=== PATIENT | male | born 1965 | race Caucasian/White ===

== ENCOUNTER 2021-05-25 15:28 | Outpatient (REF) | payer OTHER, SELFPAY | END 2021-05-25 15:29 | disposition home or self-care (01) | LOC: HO.LAB 15:28 | PROVIDERS: Visit Provider Internal Medicine | DX: Z20.822 Contact with and (suspected) exposure to COVID-19 (principal) | CPT/HCPCS: C9803; U0003; U0005 ==

== ENCOUNTER 2021-08-13 12:13 | Emergency (ER) | payer OTHER, SELFPAY ==
--- NOTE | ~2021-08-13 | CT_ITS ---
EXAMINATION: CT ABDOMEN AND PELVIS WITHOUT CONTRAST CLINICAL INFORMATION: Left leg pain COMPARISON: Previous CT of the abdomen and pelvis December 2016 TECHNIQUE: Multidetector volumetric imaging was performed from the superior aspect of the liver through the pubic symphysis. Sagittal and coronal reformatted images were obtained on the technologist's workstation. This CT examination was performed using dose optimization techniques as appropriate, variously including the following: *Automated exposure control *Adjustment of mA and/or kV according to patient size (this includes techniques or standardized protocols for targeted exams where dose is matched to indication/reason for exam; i.e. extremities or head) *Use of iterative reconstruction technique DLP: 838 mGy-cm FINDINGS: LUNG BASES: The visualized lung bases are unremarkable. LIVER, GALLBLADDER, AND BILIARY TREE: The liver is normal in size and shape. The liver is low in attenuation suggestive of fatty infiltration. No focal hepatic lesion or biliary ductal dilatation is present. The gallbladder is unremarkable with no evidence of radiopaque gallstones, gallbladder wall thickening, or obvious pericholecystic inflammatory changes. PANCREAS: Unremarkable. SPLEEN: Unremarkable. ADRENAL GLANDS: Unremarkable. KIDNEYS AND URETERS: There are 2 2 x 4 mm stones in the upper and lower pole of the left kidney. There is mild left hydronephrosis from a 3 x 5 mm left UPJ stone. There is stranding of the left perinephric fat. This probably represents backflow of urine due to obstruction. Differential would include infection. Left ureter is normal in caliber. No left ureteral stone is seen. There is a tiny 1 mm stone in the upper pole of the right kidney. BLADDER: Unremarkable. GASTROINTESTINAL TRACT: There is mild diverticulosis of the colon. Large bowel is otherwise unremarkable. The appendix is unremarkable. The stomach is unremarkable. ABDOMINAL WALL: No significant hernia is appreciated. LYMPH NODES: Normal. VASCULAR: Unremarkable. PELVIC VISCERA: Unremarkable. OSSEOUS STRUCTURES: There are degenerative changes of the spine. CT/CT abdomen pelvis wo con IMPRESSION: Mild left hydronephrosis from a 3 x 5 mm left UPJ stone. Bilateral renal stones, left greater than right. Diverticulosis. Fleischner guidelines were followed.
[2021-08-13 12:19] VITALS: BP 151/99; PULSE 75; RESP 20; TEMP 37; O2SAT 100; BMI 35.4
--- NOTE | 2021-08-13 14:25 | ED_ITS ---
HPI - Abdominal Pain General Chief Complaint: Abdominal Pain Stated Complaint: Abd Pain Time Seen by Provider: 08/13/21 14:17 Source: patient Mode of arrival: ambulatory Limitations: no limitations History of Present Illness HPI narrative: 55-year-old male with history of renal colic, high cholesterol, hypertension, NIDDM here with complaints of left-sided flank pain noticed this morning which radiates the left side of the abdomen with nausea. No vomiting, diarrhea, urinary symptoms, fevers or chills. He tells me he called his urologist but they were unable to see him and so he came here today. MD elicited complaint: abdominal pain and flank pain Related Data Previous Rx's Medication Instructions Recorded ibuprofen 600 mg tablet 600 mg PO Q8H PRN #20 tab 08/13/21 oxycodone 5 mg tablet 5 mg PO Q8H PRN #10 tab 08/13/21 tamsulosin 0.4 mg capsule (Flomax) 0.4 mg PO BEDTIME #14 cap 08/13/21 Allergies Allergy/AdvReac Type Severity Reaction Status Date / Time No Known Allergies Allergy Unverified 04/16/20 16:36 [No Known Allergies*] Review of Systems Review of Systems Yes all other systems are reviewed and are negative Constitutional: Reports no additional constitutional complaints, Denies body ache(s), Denies chills, Denies fever(s), Denies headache(s) and Denies weakness Eyes: Reports no additional eye complaints and Denies change in vision Reports system reviewed and no additional complaints, except as documented, Denies dizziness, Denies headache(s), Denies nasal congestion, Denies nasal discharge and Denies neck pain Cardiovascular: Reports no additional cardiovascular complaints, Denies chest pain, Denies leg edema and Denies dyspnea Respiratory: Reports no additional respiratory complaints, Denies cough and Denies dyspnea Gastrointestinal: Reports no additional gastrointestinal complaints, Reports abdominal pain, Denies diarrhea, Denies nausea and Denies vomiting Genitourinary: Denies urinary incontinence Musculoskeletal: Reports no additional musculoskeletal complaints, Reports back pain, Denies arthralgias, Denies joint swelling, Denies neck pain, Denies numbness and Denies tingling Skin/Breast: Reports system reviewed and no additional complaints, except as docu and Denies rash Reports system reviewed and no additional complaints, except as documented, Denies Abnormal speech present, Denies dizziness, Denies headache(s), Denies numbness, Denies tingling and Denies weakness Physical Exam Vital Signs: Vital Signs: Last Vital Signs Temp 98.1 F 08/13/21 14:52 Pulse 76 08/13/21 14:52 Resp 16 08/13/21 14:52 BP 152/97 H 08/13/21 14:52 Pulse Ox 99 08/13/21 14:52 BMI result Body Mass Index 35.4 Const: General: cooperative, healthy appearing, comfortable and no acute distress Orientation/consciousness: patient oriented x3 Limitations: no limitations HENMT: Head: Yes normal to inspection Ears: hearing grossly normal bilaterally General nose exam: Normal external nose present Face and sinus: Yes normal facial exam Mouth: Normal oral and palatal mucosa present Throat: Yes posterior oropharynx normal Eyes: General: appearance normal, both eyes and all related structures Pupils: Equal, round and reactive pupils present Neck: Neck: Yes normal visual inspection Chest: Chest palpation & inspection: normal inspection of the chest Resp: Effort & Inspection: normal respiratory effort Auscultation: clear to auscultation bilaterally Cardio: Rate: regular rate Rhythm: regular rhythm Peripheral pulses: Peripheral pulses 2+ throughout GI: Inspection: Yes normal to inspection Palpation (GI): Soft to palpation and Tenderness to palpation present (GI) (Left abdomen-no rebound or guarding) Auscultation: normal bowel sounds : General: Yes CVA tenderness (left ) Back/Spine/Pelvis: Back: CVA tenderness (left ) Thoracic/Lumbar Spine: thoracic and lumbar spine normal to inspection Skin: General skin exam: no rashes or lesions noted Neuro: General: patient oriented x3, no focal motor deficits and normal sensation to monofilament Cranial nerves: Yes Equal, round and reactive pupils present Cognition (Neuro): normal cognition Speech: No Abnormal speech present Gait exam (Neuro): Normal gait present Motor exam (neuro): 5/5 motor strength present throughout Extrem: General: Yes normal to inspection Course Course Course Narrative: 55-year-old male with a history of renal colic here with reports of left-sided flank pain with radiation to the left abdomen since waking. Will check labs, UA, CT A/P. Provide analgesia 1630- Mild left hydronephrosis from a 3 x 5 mm left UPJ stone. Bilateral renal stones, left greater than right. Diverticulosis. D/w Dr Muñoz. Recommended starting flomax, NSAID, oxycodone for home with follow-up Monday. Reviewed worrisome signs and symptoms of when to return to the emergency depar tment. Comfortable discharge home. MDM - Abdominal Pain MDM Narrative Medical decision making narrative: renal colic Medical Records Attestation: I reviewed the patient's medical records. Lab Data Attestation: I reviewed the patient's lab results. Result diagrams: 08/13/21 15:04 08/13/21 15:04 Labs: Lab Results 08/13/21 08/13/21 08/13/21 Range/Units 14:48 15:04 15:04 WBC 13.2 H (4.8-10.8) X10*3/uL RBC 5.76 (4.60-5.80) X10*6/uL Hgb 16.2 (14.0-18.0) g/dl Hct 47.3 (42.0-52.0) % MCV 82.1 (80.0-98.0) fL MCH 28.1 (27.0-33.0) pg MCHC 34.2 (31.0-36.0) g/dl RDW 11.6 (11.0-16.0) % Plt Count 249 (160-400) X10*3/uL MPV 9.9 (9.4-12.4) fL Immature Gran % (Auto) 0.5 H (0.0-0.4) % Neut % (Auto) 86.9 H (45-73) % Lymph % (Auto) 7.7 L (20-40) % [place] % (Auto) 4.6 (2-11) % Eos % (Auto) 0.1 (0-4) % Baso % (Auto) 0.2 (0-2) % Lymph # (Auto) 1.0 L (1.2-4.9) X10*3/uL [place] # (Auto) 0.6 (0.1-1.2) X10*3/uL Eos # (Auto) 0.0 (0.0-0.4) X10*3/uL Baso # (Auto) 0.0 (0.0-0.2) X10*3/uL Abs Immat Gran (auto) 0.07 H (0.00-0.03) X10*3/uL Absolute Neuts (auto) 11.5 H (2.0-8.3) x10*3/uL Absolute Nucleated RBC 0.000 (0.0-0.012) X10*3/uL Nucleated RBC % (auto) 0.0 (0.0-0.2) /100WBC Sodium 138 (135-145) mmol/L Potassium 4.4 (3.3-5.1) mmol/L Chloride 104 (96-108) mmol/L Carbon Dioxide 20 L (22-29) mmol/L Anion Gap 18 (12-20) BUN 18 H (9-16) mg/dL Creatinine 1.21 (0.5-1.4) mg/dL Estim Creat Clear Calc 79.3 Estimated GFR > 60 Random Glucose 240 H (60-115) mg/dL Calcium 9.9 (8.4-10.2) mg/dL Total Bilirubin 0.5 (0.0-1.0) mg/dL Direct Bilirubin 0.2 (0.0-0.5) mg/dL AST 64 H (5-37) U/L ALT 91 H (0-40) U/L Alkaline Phosphatase 67 (39-117) U/L Total Protein 7.6 (6.5-8.0) g/dL Albumin 4.3 (3.5-5.0) g/dL Urine Color YELLOW Urine Appearance CLEAR Urine pH 5.5 (5.0-8.0) Ur Specific [place] >= 1.030 H (1.005-1.025) Urine Protein TRACE (NEG-TRACE) MG/DL Urine Glucose (UA) 500 H (NEG) MG/DL Urine Ketones NEG (NEG) MG/DL Urine Blood 3+ H (NEG) Urine Nitrite NEG (NEG) Ur Leukocyte Esterase NEG (NEG) Urine RBC 5-9 H (0) /HPF Urine WBC 0 (0-4) /HPF Ur Squamous Epith Cells TRACE /LPF Urine Bacteria NONE /LPF Urine Mucus TRACE /LPF Imaging Data CT scan - abdomen: Attestation: I personally reviewed and interpreted this imaging study as follows: Radiologist's impression: FINDINGS: LUNG BASES: The visualized lung bases are unremarkable.? LIVER, GALLBLADDER, AND BILIARY TREE: The liver is normal in size and shape. The liver is low in attenuation suggestive of fatty infiltration. No focal hepatic lesion or biliary ductal dilatation is present. The gallbladder is unremarkable with no evidence of radiopaque gallstones, gallbladder wall thickening, or obvious pericholecystic inflammatory changes.? PANCREAS: Unremarkable.? SPLEEN: Unremarkable.? ADRENAL GLANDS: Unremarkable.? KIDNEYS AND URETERS: There are 2 2 x 4 mm stones in the upper and lower pole of the left kidney. There is mild left hydronephrosis from a 3 x 5 mm left UPJ stone. There is stranding of the left perinephric fat. This probably represents backflow of urine due to obstruction. Differential would include infection. Left ureter is normal in caliber. No left ureteral stone is seen. There is a tiny 1 mm stone in the upper pole of the right kidney.? BLADDER: Unremarkable.? GASTROINTESTINAL TRACT: There is mild diverticulosis of the colon. Large bowel is otherwise unremarkable. The appendix is unremarkable. The stomach is unremarkable.? ABDOMINAL WALL: No significant hernia is appreciated.? LYMPH NODES: Normal. VASCULAR: Unremarkable. PELVIC VISCERA: Unremarkable.? OSSEOUS STRUCTURES: There are degenerative changes of the spine.? CT/CT abdomen pelvis wo con IMPRESSION: Mild left hydronephrosis from a 3 x 5 mm left UPJ stone. Bilateral renal stones, left greater than right. Diverticulosis. ? Fleischner guidelines were followed. Discharge Plan Discharge Clinical Impression: Calculus of kidney Patient Disposition: Home, Self-Care Instructions: Kidney Stones (ED) Additional Instructions: Increase fluids, rest Dr. Muñoz's nurse will call you Monday to make an appointment Return this week and for severe pain, vomiting or fever Prescriptions: New tamsulosin [Flomax] 0.4 mg capsule 0.4 mg PO BEDTIME Qty: 14 RF: 0 ibuprofen 600 mg tablet 600 mg PO Q8H PRN (Reason: pain) Qty: 20 RF: 0 oxycodone 5 mg tablet 5 mg PO Q8H PRN (Reason: pain) Qty: 10 RF: 0 Referrals: Oscar Muñoz MD [Physician] - 2 days Stand Alone Forms: Work/School Release [facility] Past Medical History Attestation statement: The following information was validated with the patient. Source: old records reviewed and nursing notes reviewed Medical History Diabetes H/O nephrolithotomy with removal of calculi High cholesterol HTN (hypertension) Kidney stone Surgical History H/O shoulder surgery Social History Social History Advance Directives: No Advance Directives Information Provided: Yes
[2021-08-13 14:52] VITALS: BP 152/97; PULSE 76; RESP 16; TEMP 36.7; O2SAT 99
[2021-08-13 14:54] LABS: Appearance Urine CLEAR; Color Urine YELLOW; Glucose Urine UA 500 MG/DL (NEG); Leukocyte Esterase Urine NEG (NEG); Nitrite Urine NEG (NEG); PH 5.5 (5.0-8.0); Specific Gravity - Urine >= 1.030 (1.005-1.025); UACC Culture Trigger NO; Urine Blood 3+ (NEG); Urine Ketones NEG (NEG); Urine Protein TRACE MG/DL (NEG-TRACE)
[2021-08-13 15:08] LABS: MANUAL DIFF FLAG NO
[2021-08-13] MEDS: ondansetron HCL 4 MG/2 ML VIAL IVPUSH (15:08)
[2021-08-13] MEDS: Morphine Sulfate 4 MG/ML CARTRIDGE IVPUSH (15:08)
[2021-08-13] MEDS: 0.9 % Sodium Chloride 1,000 ML 999 ML IV (15:09)
[2021-08-13] MEDS: Ketorolac Tromethamine 30 MG/ML VIAL IVPUSH (15:09)
[2021-08-13 15:11] LABS: Basophils Percent Auto 0.2 % (0-2); Eosinophils Percent Auto 0.1 % (0-4); Hematocrit 47.3 % (42.0-52.0); Hemoglobin 16.2 g/dl (14.0-18.0); Imm Gran Abs Auto 0.07 X10*3/uL (0.00-0.03); Imm Gran Pct Auto 0.5 % (0.0-0.4); Lymphocytes Percent Auto 7.7 % (20-40); Mean Corpuscular HGB Conc 34.2 g/dl (31.0-36.0); Mean Corpuscular Hemoglobin 28.1 pg (27.0-33.0); Mean Corpuscular Volume 82.1 fL (80.0-98.0); Mean Platelet Volume 9.9 fL (9.4-12.4); Monocytes Absolute Auto 0.6 X10*3/uL (0.1-1.2); Monocytes Percent Auto 4.6 % (2-11); Neutrophils Absolute Auto 11.5 x10*3/uL (2.0-8.3); Neutrophils Percent Auto 86.9 % (45-73); Platelet Count 249 X10*3/uL (160-400); Red Blood Count 5.76 X10*6/uL (4.60-5.80); Red Cell Distribution Width 11.6 % (11.0-16.0); White Blood Count 13.2 X10*3/uL (4.8-10.8)
[2021-08-13 15:15] LABS: WBC Urine 0 /HPF (0-4)
[2021-08-13 15:16] LABS: Mucus Urine TRACE /LPF; Squamous Epithelial Cell Urine TRACE /LPF
[2021-08-13 15:33] LABS: Alanine Aminotransferase 91 U/L (0-40); Albumin Level 4.3 g/dL (3.5-5.0); Alkaline Phosphatase 67 U/L (39-117); Anion Gap 18 (12-20); Aspartate Amino Transferase 64 U/L (5-37); Bilirubin Direct 0.2 mg/dL (0.0-0.5); Bilirubin Total 0.5 mg/dL (0.0-1.0); Blood Urea Nitrogen 18 mg/dL (9-16); Calcium 9.9 mg/dL (8.4-10.2); Carbon Dioxide 20 mmol/L (22-29); Chloride 104 mmol/L (96-108); Creatinine Clr Calc Pharmacy 79.3; Estimated Glomerular Filt Rate > 60; Glucose Random 240 mg/dL (60-115); Potassium 4.4 mmol/L (3.3-5.1); Sodium 138 mmol/L (135-145); Total Protein 7.6 g/dL (6.5-8.0)
== END 2021-08-13 17:18 | disposition home or self-care (01) ==
PROVIDERS: Emergency Provider Emergency Medicine; PCP Internal Medicine
DX: N20.0 Calculus of kidney (principal); R10.9 Unspecified abdominal pain; R11.0 Nausea; Z79.899 Other long term (current) drug therapy
CPT/HCPCS: 36415; 74176; 80053; 81001; 81003; 82248; 85025; 96361; 96374; 96375; 99284; J1885; J2270; J2405

== ENCOUNTER 2021-08-16 11:29 | Day surgery (SDC) | payer OTHER, SELFPAY ==
--- NOTE | ~2021-08-16 | FL_ITS ---
EXAMINATION: XR FLUOROSCOPY WITH IMAGES CLINICAL INFORMATION: Urinary tract calculi, mild left hydronephrosis with left UPJ calculus. COMPARISON: CT abdomen and pelvis without contrast 08/13/2021 TECHNIQUE: Fluoroscopy performed by Dr. Oscar Muñoz. Fluoroscopy time: 1 minute Cumulative dose: 48.6 mGy Images: 3 FINDINGS: Mild left caliectasis. Subtle nonobstructing intrarenal calculi. Ureteropelvic junction calculus questionably seen on one view. Ureteral stent present on final image. FL/FL guidance in OR IMPRESSION: Fluoroscopy for urologic procedure.
[2021-08-16 11:57] VITALS: BMI 35.4
[2021-08-16 12:07] VITALS: BP 153/89; PULSE 88; RESP 16; TEMP 37.4; O2SAT 96
--- NOTE | 2021-08-16 12:20 | HO.ANESPROP2 ---
HPI - Anesthesia Eval Consult details Narrative: 55 M for cystoscopy Kristine, CPAP . HTN PMFSH Past Medical History Medical History (Updated 08/16/21 @ 12:51 by Oscar Muñoz MD) Diabetes H/O nephrolithotomy with removal of calculi High cholesterol HTN (hypertension) Kidney stone Family History Family history of problems with anesthesia: No Surgical History Surgical History H/O shoulder surgery History of Problems with Anesthesia: No Social History Social History Patient Tobacco Use Status: Never used Tobacco Second Hand Smoke Exposure: No Meds Allergies Allergy/AdvReac Type Severity Reaction Status Date / Time No Known Allergies Allergy Unverified 04/16/20 16:36 [No Known Allergies*] Exam Exam Date and Time: August 16, 2021 1220 Height,Weight and Vital Signs: Height 5 ft 8 in Weight 105.687 kg Last Vital Signs Temp 99.4 F 08/16/21 12:07 Pulse 88 08/16/21 12:07 Resp 16 08/16/21 12:07 BP 153/89 H 08/16/21 12:07 Pulse Ox 96 08/16/21 12:07 Airway Mallampati Class: III TM Dist: >3cm Neck ROM: Full Loose/Missing/Broken Teeth: Yes (Braces , loose bottom teeth ) Heart: rrr Lungs: bl breath sounds Assessment and Plan Assessment Anesthesia Assessment: Anesthesia Plan Discussed Final Anesthetic Review Family History of Problems with Anesthesia: No History of Problems with Anesthesia: No NPO: Yes ASA Class: III Final Preanesthetic Review: Meds/Allgs Chart Reviewed and Anes Risks/Benef Reviewed Patient Risk: Intermediate Procedure Risk: Intermediate Anesthetic Plan Anesthetic Plan: GA Disposition: Standard PACU
[2021-08-16 12:21] LABS: Glucose, Whole Blood 170 mg/dL (60-115)
--- NOTE | 2021-08-16 12:43 | MHC.SHP ---
Pre-Procedural Eval Section A Date of Service: 08/16/21 The patient is an INPATIENT: No Changes since office visit: No Cold of Flu in the past 2 weeks, No New Medical Problems, No Changes in Medication and No Patient answered all questions The History & Physical has been completed within 30 days and I have reviewed it.: No Section B Chief Complaint: calculus of kidney Details of Present Illness: left flank pain last week with 2nd presentation to emergency room on Monday. 5 mm stone left UPJ. Relevant Family History (Specify if Yes): No Relevant Social History: None Present Medications: see Short Stay Collaborative assessment Medical History: No relevant PMH History of Previous Operations: No relevant previous surgery Allergies: Allergies Allergy/AdvReac Type Severity Reaction Status Date / Time No Known Allergies Allergy Unverified 04/16/20 16:36 [No Known Allergies*] Review of Systems Sugical H&P ROS: Negative: Constitution, Cardiovascular, Respiratory, Neurological, Psychiatric, Hem-Onc, Allergic/Immunologic, Gastrointestinal, Genitourinary, Musculoskeletal, Integumentary, Endocrine and Eyes/Ears/Nose/Throat Exam Surgical H&P Exam: Normal: HEENT, Normal: Heart, Normal: Lungs, Normal: Extremities, Normal: Abdomen, Normal: Skin and Normal: Neurological Plan Diagnosis/Plan: Unchanged ( Cystoscopy, left retrograde, left ureteroscopy with laser lithotripsy flexible stone basketing and stent placement) I have reviewed the history and physical and performed a pertinent physical examination on my patient. No changes have occurred unless specified.
--- NOTE | 2021-08-16 12:49 | PM.UROCN ---
History of Present Illness Consult details Consult date: 08/16/21 Narrative: Rodríguez vazquez a pleasant 55-year-old male Was seen in the emergency room on Monday evening left-sided flank pain that had started earlier in the day and became intolerable in on sponsor to all medications Prior stone procedure 5 years ago. Creatinine 1.2, WBC 13.2 CT scan performed There are 2 2 x 4 mm stones in the upper and lower pole of the left kidney. There is mild left hydronephrosis from a 3 x 5 mm left UPJ stone. There is stranding of the left perinephric fat. This probably represents backflow of urine due to obstruction. Differential would include infection. Left ureter is normal in caliber. No left ureteral stone is seen. There is a tiny 1 mm stone in the upper pole of the right kidney. based on consideration of persistent clinical symptoms and pain with imaging suggestive of proximal ureteric 5 mm stone recommendation would be for intervention with ureteroscopy and laser lithotripsy. Review of Systems Constitutional: Constitutional: Denies chills and Denies fever(s) Cardiovascular: Cardiovascular: Reports no additional cardiovascular complaints and Denies syncope Respiratory: Respiratory: Denies cough Gastrointestinal: Gastrointestinal: Denies abdominal pain and Denies heartburn Genitourinary: Genitourinary: Reports as per HPI and Denies change in libido Neurologic: Denies syncope Psychiatric: Psychiatric: Denies change in libido Endocrine: Endocrine: Denies change in libido COUNTS INCLUDE 234 BEDS AT THE [facility] Past Medical History Medical History (Updated 08/16/21 @ 12:51 by Oscar Muñoz MD) Diabetes H/O nephrolithotomy with removal of calculi High cholesterol HTN (hypertension) Kidney stone Surgical History Surgical History H/O shoulder surgery Social History Social History Patient Tobacco Use Status: Never used Tobacco Second Hand Smoke Exposure: No Use of substances other than those prescribed or required for medical reasons: No Are you DNR?: No Advance Directives: No Advance Directives Information Provided: No Advance Directives on File: No Meds Allergies Allergy/AdvReac Type Severity Reaction Status Date / Time No Known Allergies Allergy Unverified 04/16/20 16:36 [No Known Allergies*] Physical Exam Vital Signs: Vital Signs: Last Vital Signs Temp 99.4 F 08/16/21 12:07 Pulse 88 08/16/21 12:07 Resp 16 08/16/21 12:07 BP 153/89 H 08/16/21 12:07 Pulse Ox 96 08/16/21 12:07 BMI result Body Mass Index 35.4 Const: General: cooperative, healthy appearing, comfortable and no acute distress Orientation/consciousness: patient oriented x3 HENMT: Face and sinus: Yes normal facial exam Mouth: moist mucous membranes Neck: Neck: Yes normal visual inspection, Yes full ROM and Yes trachea midline Chest: Chest palpation & inspection: normal inspection of the chest Resp: Effort & Inspection: normal respiratory effort, able to speak in complete sentences and no respiratory distress GI: Inspection: Yes normal to inspection Back/Spine/Pelvis: Cervical Spine: normal cervical lordosis Thoracic/Lumbar Spine: thoracic and lumbar spine normal to inspection Skin: General skin exam: no rashes or lesions noted Neuro: General: patient oriented x3, gait normal, tone normal and moves all extremities Extrem: General: Yes normal to inspection and Yes capillary refill normal Results Labs Labs: Abnormal lab results 08/16/21 Range/Units 12:16 POC Glucose 170 H (60-115) mg/dL All other labs normal. Assessment and Plan (1) Kidney stone: Status: Acute Ureteroscopy We discussed the nature of the decision and reasonable alternatives for performing the above surgery. Interventions include chemical dissolution, ESWL, ureteroscopy with laser lithotripsy and stent placement, PCNL. Options such as medical therapy were discussed. The relative uncertainties and benefits related to each alternate procedure were adequately discussed. General surgical risks including, but not limited to, pain, bleeding, infection, myocardial infarction, pulmonary embolus, deep vein thrombosis and cerebrovascular accident which may result in further hospitalization were discussed. Full disclosure of the procedure as well as all major risks, benefits and complications were discussed including but not limited to damage to the urethra, bladder and kidney infection, damage to the ureter, stent migration or malposition, scarring to the renal pelvis, remnant stone fragments, subsequent stone passage with need for secondary procedures. The overall secondary procedure rate is approximately 10-15%. The success rate of the procedure was discussed. Success of the procedure in the short-term does not necessarily guarantee that long-term success will be maintained. Suitable follow up will need to be maintained. The patient showed understanding of discussion and wishes to proceed with - cystoscopy, retrograde, ureteroscopy, possible lithotripsy/stone basketing and stent on the left side Procedures Date of Service Date of Service: 08/16/21
[2021-08-16] MEDS: levoFLOXacin 500 MG TABLET PO (12:51)
--- NOTE | 2021-08-16 14:01 | W.PM.OPN ---
Operative Note Operative Note Date of Service: 08/16/21 Narrative: PreOperative Diagnosis: left UPJ stone Post Operative Diagnosis: impacted left UPJ stone, left renal stone Procedure: - cystoscopy, left retrograde - left dilatation of ureteric orifice under fluoroscopy - left flexible ureteroscopy, laser lithotripsy, stone basketing - left stent placement Surgeon: Dr Oscar Muñoz Anesthesia: General Indications for procedure: 55-year-old male. A presented to emergency room with 5 mm left UPJ stone and secondary stone on left side. Persistent pain unable to tolerate oral intake. Recommend intervention with ureteroscopy and laser lithotripsy. Procedure: After informed consent was verified patient was brought to the operating placed in supine position. Anesthesia was administered per protocol. Patient was placed in modified dorsal lithotomy position and prepped and draped in a sterile fashion. Safety pause time-out and side of surgery confirmed. Antibiotics confirmed. 22 [place] cystoscope was inserted per urethra. Bladder was normal in its entirety. Both ureteric orifices were in normal position. The Left ureteric orifice was cannulated and a retrograde examination was performed. filling defects seen at left UPJ . A Sensor guidewire was placed up to the level of the renal pelvis under fluoroscopy. stone pushed back into kidney The rigid cystoscope was removed and the inner cannula of ureteric access sheath was used under fluoroscopy to dilate the ureteric orifice. The ureteric access sheath was placed and the inner cannula with access wire removed. The digital flexible ureteral scope was placed. the scope was advanced up the access sheath. The stone was found to be in bed in the left UPJ. Using a 6 mm laser fiber the stone was broken in small pieces. The scope was advanced into the renal pelvis. There was debris. The Sensor wire was placed. The open-ended catheter was placed in the area flushed. The flexible scope was placed again in a 2nd stone encountered. The stone was brought down to the renal pelvis. Using the laser fiber was broken to small pieces. These pieces removed with a basket. Safety wire was there with the prior Sensor wire. There was a split in the upper part of ureter likely secondary to the urogenital impacted stone and where was pushed back into the renal pelvis. Care was taken to try to avoid making this wider. Once small pieces had been removed decision made to complete the procedure. The flexible ureteral scope was removed. The access sheath was removed. The safety wire was in place and backloaded through a cystoscope. A 6 [place] by Twenty-six cm double-J stent was placed into the renal pelvis and bladder under a combination of fluoroscopy and direct visualization. a B&O suppository was placed for postprocedure pain management The bladder was emptied. The patient tolerated the procedure well and was extubated in the operating room, and transferred in stable condition to the recovery area. Pathology: stones hard Drains: 6 [place] by 26 cm double-J stent on left side
[2021-08-16 14:14] VITALS: BP 130/93; PULSE 82; RESP 18; TEMP 37.2; O2SAT 95
[2021-08-16 14:19] VITALS: BP 115/89; PULSE 96; RESP 19; O2SAT 93
[2021-08-16 14:24] VITALS: BP 128/83; PULSE 97; RESP 19; O2SAT 93
[2021-08-16 14:29] VITALS: BP 129/81; PULSE 96; RESP 21; O2SAT 93
[2021-08-16 14:44] VITALS: BP 133/86; PULSE 96; RESP 18; TEMP 37.2; O2SAT 93
[2021-08-16] MEDS: Phenazopyridine HCL 100 MG TABLET PO (14:44)
[2021-08-16] MEDS: Acetaminophen 325 MG TABLET 650 MG PO (14:46)
[2021-08-19 04:26] LABS: Stone Source LEFT RENAL
== END 2021-08-16 15:23 | disposition home or self-care (01) ==
PROVIDERS: PCP Internal Medicine; Visit Provider Urology
PROC: (CPT 52356; principal; 2021-08-16 13:20)
DX: N20.0 Calculus of kidney (principal); N13.0 Hydronephrosis with ureteropelvic junction obstruction; Z87.442 Personal history of urinary calculi; I10 Essential (primary) hypertension; E78.00 Pure hypercholesterolemia, unspecified; E11.9 Type 2 diabetes mellitus without complications
CPT/HCPCS: 52356; 52352; 82365; 82947; 88300; C1758; C1769; C2617; J0330; J1100; J1885; J2250; J2370; J2405; J3010; Q9967

== ENCOUNTER → 2021-09-02 10:48 | Outpatient (BNVA) | payer OTHER, SELFPAY | PROVIDERS: PCP Internal Medicine; Visit Provider Urology | DX: N20.0 Calculus of kidney (principal) | CPT/HCPCS: 52310 ==

== ENCOUNTER 2021-11-03 10:26 | Outpatient (REF) | payer OTHER, SELFPAY ==
--- NOTE | ~2021-11-03 | US_ITS ---
EXAMINATION: US RETROPERITONEAL LIMITED (RENAL ONLY) CLINICAL INFORMATION: Calculus of kidney. COMPARISON: CT abdomen and pelvis 01/11/2022. X-ray KUB and renal ultrasound 08/08/2016. TECHNIQUE: Real-time imaging of the kidneys. FINDINGS: RIGHT KIDNEY: 13.3 x 7.0 x 6.3 cm (SAG x AP x TRV). The kidney is normal in size, contour, and echogenicity. Renal cortical thickness is normal. No focal parenchymal lesions or hydronephrosis. There is an echogenic stone, midpole, measuring 0.4 x 0.3 x 0.5 cm. LEFT KIDNEY: 13.5 x 6.8 x 5.5 cm (SAG x AP x TRV). The kidney is normal in size, contour, and echogenicity. Renal cortical thickness is normal. No focal parenchymal lesions. There are several echogenic stones. Upper pole echogenic stone measures 0.3 x 0.4 x 0.4 cm. Mid pole stone measuring 0.3 x 0.3 x 0.2 cm. Lower pole stone measures 0.3 x 0 0.5 to 0.4 cm. There is no caliectasis. US/US renal BI IMPRESSION: Bilateral nonobstructive echogenic renal calculi. No hydronephrosis.
== END 2021-11-03 10:27 | disposition home or self-care (01) ==
LOC: HO.HMGCX 10:26
PROVIDERS: PCP Internal Medicine; Visit Provider Urology
DX: N20.0 Calculus of kidney (principal)
CPT/HCPCS: 76775

== ENCOUNTER 2021-11-09 11:43 | Outpatient (AMB) | payer OTHER, SELFPAY ==
--- NOTE | 2021-11-09 11:48 | A.OFFVIS_ITS ---
Intake Intake Visit Reasons: 2 Month Ultrasound/Litholink(set) Intake Note: patient is present for ultrasound/litholink follow up Reel Slitter Required: No Accompanied by: Self / Same As Patient Allergies No Known Allergies [No Known Allergies*] Allergy (Verified 07/18/23 09:29) HPI HPI Comments History of Present Illness Details Rodríguez is a very pleasant male. They are a patient of Dr Moody. They are seen in the office today for the following urologic conditions. - nephrolithiasis Here for cystoscopy and stent removal Underwent procedure last week with calcium oxalate monohydrate stones Has recurrent stones every 5 or 6 years Will repeat 24 hour urine hand baseline laboratories Previously hyperuricemia and had been on allopurinol Nephrolithiasis/Urolithiasis: ? They are here for?further evaluation of urethrolitiasis ?, followup after stone procedure, USR - tolerated stent well ? Urolithiasis was diagnosed?Many years has passed occasional stones.? The patient previously had kidney stones whose composition w?calcium oxalate - monohydrate 2003 ?05/2016 , calcium oxalate - monohydrate - 08/21 CALCIUM OXALATE MONOHYDRATE 80% ? Laboratory investigations include?Base line serum evaluation, 07/15 Normocalcemia (9.0), Normal PTH, Hyperuricemia.? 24 Hour urine evaluation?07/15 , Low Urine volume < 2.0 liters, High Sodium (> 100mEq), High oxalate > 30mg, Low urine pH < 5.5, High uric acid ? Prior treatment(s) include?ureteroscopy 1986 ?, ureteroscopy, right 07/15.? Prior imaging includes?a renal ultrasound, showing radiodense stone(s), on the left 2-3mm.? Current therapeutic plan will be?Will start directed medical therapy, to continue with imaging surveillance ?- repeat labs and imaging [facility] Medical History MACARIO on CPAP Slow to wake up after anesthesia H/O nephrolithotomy with removal of calculi High cholesterol HTN (hypertension) Diabetes Kidney stone Surgical History Hx of colonoscopy History of ankle surgery Hx of cystoscopy H/O shoulder surgery Social History Are you a primary attending ambulatory care to a significant other at home: No Do you presently have visiting nurse or other home services: No Patient Tobacco Use Status: Never used Tobacco Second Hand Smoke Exposure: No Review of Systems Const Denies chills and Denies fever(s) Card Reports no additional complaints and Denies syncope Resp Denies cough GI Denies abdominal pain and Denies heartburn Reports as per HPI and Denies change in libido Neuro Denies syncope Psych Denies change in libido Endo Denies change in libido Physical Exam Const General: cooperative, healthy appearing, comfortable and no acute distress Orientation/consciousness: patient oriented x3 HEENT Face and sinus: Yes normal facial exam Mouth: moist mucous membranes Neck Neck: Yes normal visual inspection, Yes full ROM and Yes trachea midline Chest Chest palpation & inspection: normal inspection of the chest Resp Effort & Inspection: normal respiratory effort, able to speak in complete sentences and no respiratory distress GI Inspection: Yes normal to inspection Back/Spine/Pelvis Cervical Spine: normal cervical lordosis Thoracic/Lumbar Spine: thoracic and lumbar spine normal to inspection Skin General skin exam: no rashes or lesions noted Neuro General: patient oriented x3, gait normal, tone normal and moves all extremities Extrem General: Yes normal to inspection and Yes capillary refill normal Results AMB Urinalysis, Automated UA Leukoctes 0 Annabella/uL Last Edit by Keyon Young on 11/09/21 12:02 UA Nitrite Negative Last Edit by Keyon Young on 11/09/21 12:02 UA Urobilinogen 0.2 mg/dL Last Edit by Keyon Young on 11/09/21 12:02 UA Protein 0 mg/dL Last Edit by Keyon Young on 11/09/21 12:02 UA pH 6.0 Last Edit by Keyon Young on 11/09/21 12:02 UA Blood 0 Dale/uL Last Edit by Keyon Young on 11/09/21 12:02 UA Specific [place] 1.020 Last Edit by Keyon Young on 11/09/21 12:02 UA Ketone Negative Last Edit by Keyon Young on 11/09/21 12:02 UA Bilirubin 0 mg/dL Last Edit by Keyon Young on 11/09/21 12:02 UA Glucose 0 mg/dL Last Edit by Keyon Young on 11/09/21 12:02 Results Reviewed Results Reviewed: Laboratory Last Values Urine pH (Auto) 6.0 11/09/21 12:01 Specific [place] (Auto) 1.020 11/09/21 12:01 Urine Protein (Auto) 0 mg/dL 11/09/21 12:01 Glucose (UA)(Auto) 0 mg/dL 11/09/21 12:01 Urine Ketones (Auto) Negative 11/09/21 12:01 Urine Blood (Auto) 0 Dale/uL 11/09/21 12:01 Urine Nitrite (Auto) Negative 11/09/21 12:01 Urine Bilirubin (Auto) 0 mg/dL 11/09/21 12:01 Urine Urobilinogen (Auto) 0.2 mg/dL 11/09/21 12:01 Leukocyte Esterase (Auto) 0 Annabella/uL 11/09/21 12:01 Assessment & Plan Assessment & Plan (1) Diabetes: Code(s): E11.9 - Type 2 diabetes mellitus without complications (2) Kidney stone: Comment: Calcium oxalate monohydrate Code(s): N20.0 - Calculus of kidney Plan Initiate potassium citrate Orders: Orders AMB Urinalysis Automated 11/09/21 Z13.9 - Encounter for screening, unspecified US renal BI 6 Months N20.0 - Calculus of kidney Medications: New potassium citrate ER 20 mEq (2 x 10 mEq (1,080 mg)) PO BID 360 tabs 1RF 90 days N20.0 - Calculus of kidney flash glucose sensor (FreeStyle Jolene 2 Sensor kit) As directed 1 ea 0RF E11.9 - Type 2 diabetes mellitus without complications Patient Instructions: Imaging studies, laboratory and physical exam results were discussed and reviewed in detail. No major barriers to patient understanding were identified. An opportunity to ask questions regarding the treatment plan was provided. All questions were answered. The patient expressed understanding and agreement with the above treatment plan. The patient is aware they should contact our office by phone for worsening of their current condition or the appearance of new urologic symptoms. Compliance is encouraged with any medications and followup testing that is ordered. It is a privilege to participate in the urologic care of your patient. If you have any questions or concerns regarding treatment for the above conditions, or other urologic issues, please do not hesitate to contact me. The office telephone contact is [phone]. This note is constructed using voice recognition software. While every effort has been made to ensure accuracy outside plant engineer errors may have been included. Yours sincerely, Dr Oscar Muñoz MD, [facility] - Urology Providers of Expert, Compassionate Care for the Genitourinary System Coding Level of Care Code Est Pt Level 3 (79023) Diagnoses Diabetes E11.9 Kidney stone N20.0
== END 2021-11-09 13:11 | disposition home or self-care (01) ==
LOC: HO.HUSH 11:43
PROVIDERS: PCP Internal Medicine; Visit Provider Urology
DX: E11.9 Type 2 diabetes mellitus without complications (principal); N20.0 Calculus of kidney
CPT/HCPCS: 99499

== ENCOUNTER → 2021-11-09 11:43 | Outpatient (BNVA) | payer OTHER, SELFPAY | PROVIDERS: PCP Internal Medicine; Visit Provider Urology | DX: Z13.89 Encounter for screening for other disorder (principal) ==

== ENCOUNTER 2022-06-08 12:24 | Outpatient (REF) | payer OTHER, SELFPAY ==
--- NOTE | ~2022-06-08 | US_ITS ---
EXAMINATION: US RETROPERITONEAL LIMITED (RENAL ONLY) CLINICAL INFORMATION: Calculus of kidney. COMPARISON: Ultrasound retroperitoneal limited (renal only) 11/03/2021 and 08/08/2016. CT abdomen and pelvis without contrast 08/13/2021. X-ray abdomen KUB 08/08/2016. TECHNIQUE: Real-time imaging of the kidneys. FINDINGS: RIGHT KIDNEY: 13.3 x 6.6 x 6.3 cm (SAG x AP x TRV). The kidney is normal in size, contour, and echogenicity. Renal cortical thickness is normal. No calculi or focal parenchymal lesions. No hydronephrosis. There are a few echogenic calcified vessels. LEFT KIDNEY: 13.1 x 6.2 x 7.7 cm (SAG x AP x TRV). The kidney is normal in size, contour, and echogenicity. Renal cortical thickness is normal. No focal parenchymal lesions. There is small amount of hydronephrosis. There are echogenic stones. Upper pole stone measures 0.7 x 0.4 cm, midpole stone measuring 0.8 x 0.5 cm and lower pole stone measures 0.9 x 0.5 cm. There is no caliectasis. US/US renal BI IMPRESSION: 1. Multiple echogenic stones left kidney without caliectasis. There is mild left hydronephrosis. 2. The right kidney is unremarkable.
== END 2022-06-08 12:25 | disposition home or self-care (01) ==
LOC: HO.US 12:24
PROVIDERS: PCP Internal Medicine; Visit Provider Urology
DX: N20.0 Calculus of kidney (principal)
CPT/HCPCS: 76775

== ENCOUNTER 2022-07-04 08:06 | Day surgery (SDC) | payer OTHER, SELFPAY ==
[2022-06-29 15:08] VITALS: BMI 34.9
--- NOTE | 2022-07-01 09:34 | P.CONAN_ITS ---
HPI - Anesthesia Eval Consult details Narrative: 56yo M for Left Cystoscopy, Ureteroroscopy, Retro, Laser possible stent PMFSH Active Problems Active Problems: All Active Problems (Updated 06/29/22 @ 15:16 by Ryann Claudio, DION) Diabetes (Acute) Kidney stone (Acute) Past Medical History Medical History (Updated 06/29/22 @ 15:16 by Ryann Claudio, RN) Diabetes H/O nephrolithotomy with removal of calculi High cholesterol HTN (hypertension) Kidney stone MACARIO on CPAP Slow to wake up after anesthesia Family History Family history of problems with anesthesia: No Surgical History Surgical History (Updated 06/29/22 @ 15:16 by Ryann Claudio, DION) H/O shoulder surgery History of ankle surgery Hx of colonoscopy Hx of cystoscopy History of Problems with Anesthesia: No Social History Social History Are you a primary post acute care nurse practitioner to a significant other at home: No Do you presently have visiting nurse or other home services: No Patient Tobacco Use Status: Never used Tobacco Second Hand Smoke Exposure: No Meds Allergies Allergy/AdvReac Type Severity Reaction Status Date / Time No Known Allergies Allergy Verified 06/29/22 15:14 [No Known Allergies*] Home Medications Medication Instructions Recorded Confirmed Last Taken Type allopurinol 100 mg tablet 100 mg PO DAILY 09/02/21 06/29/22 Unknown History fluoxetine 40 mg capsule 40 mg PO DAILY 09/02/21 06/29/22 Unknown History lisinopril 10 mg tablet 10 mg PO DAILY 09/02/21 06/29/22 Unknown History simvastatin 40 mg tablet 40 mg PO DAILY 09/02/21 06/29/22 Unknown History triamcinolone acetonide 0.1 % 1 appl topical BID-TID 09/02/21 Unknown History topical cream dulaglutide 3 mg/0.5 mL mg subcut 06/20/22 Unknown History subcutaneous pen injector ([facility]) Exam Exam Date and Time: July 01, 2022 0934 Height,Weight and Vital Signs: Height 5 ft 8 in Weight 104.326 kg Assessment and Plan Assessment Anesthesia Assessment: Chart Reviewed Final Anesthetic Review Family History of Problems with Anesthesia: No History of Problems with Anesthesia: No
--- NOTE | ~2022-07-04 | FL_ITS ---
CLINICAL INDICATION: Urolithiasis and mild left hydronephrosis identified on ultrasound dated June 08, 2022. Left retrograde. FINDINGS: Technical assistance and equipment were provided by the Department of Radiology during intraoperative fluoroscopy for ureteral stent placement. 4, limited fluoroscopic spot images are submitted. A radiologist was not present during the procedure. Images are not labeled left versus right. Images demonstrate a cystoscopy cannula to project over the expected location of the urinary bladder. The proximal loop of a presumed double-J ureteral stent projects over the and upper quadrant, and the distal loop projects over the expected location of the urinary bladder. No contrast is seen on the images submitted. The images are available for review on PACS. TOTAL FLUOROSCOPY TIME: 27 seconds. CUMULATIVE DOSE: 15.7 mGy FL/FL guidance in OR IMPRESSION: Technical assistance and equipment provided by the Department of Radiology during intraoperative fluoroscopy, as above. Please see operative report for further details.
[2022-07-04 08:52] VITALS: BMI 34.9
[2022-07-04 08:53] VITALS: BP 126/82; PULSE 75; RESP 18; TEMP 36.1; O2SAT 95
[2022-07-04 09:07] LABS: Glucose, Whole Blood 175 mg/dL (60-115)
[2022-07-04] MEDS: Lactated Ringers 1,000 ML 100 ML IVCONT (09:13)
--- NOTE | 2022-07-04 09:30 | MHC.SHP ---
Pre-Procedural Eval Section A Date of Service: 07/04/22 The patient is an INPATIENT: No Changes since office visit: No Cold of Flu in the past 2 weeks, No New Medical Problems, No Changes in Medication and No Patient answered all questions The History & Physical has been completed within 30 days and I have reviewed it.: Yes Section B Chief Complaint: Calculus of kidney Details of Present Illness: left renal stones Relevant Family History (Specify if Yes): No Relevant Social History: None Present Medications: see Short Stay Collaborative assessment Medical History: No relevant PMH History of Previous Operations: Relevant previous surgery/procedure and date(s) Allergies: Allergies Allergy/AdvReac Type Severity Reaction Status Date / Time No Known Allergies Allergy Verified 06/29/22 15:14 [No Known Allergies*] Review of Systems Sugical H&P ROS: Negative: Constitution, Cardiovascular, Respiratory, Neurological, Psychiatric, Hem-Onc, Allergic/Immunologic, Gastrointestinal, Genitourinary, Musculoskeletal, Integumentary, Endocrine and Eyes/Ears/Nose/Throat Exam Surgical H&P Exam: Normal: HEENT, Normal: Heart, Normal: Lungs, Normal: Extremities, Normal: Abdomen, Normal: Skin and Normal: Neurological Plan Diagnosis/Plan: Unchanged ( cystoscopy, left retrograde, left ureteroscopy flexible with laser lithotripsy stent placement) I have reviewed the history and physical and performed a pertinent physical examination on my patient. No changes have occurred unless specified.
[2022-07-04 11:13] VITALS: BP 127/86; PULSE 89; RESP 28; TEMP 36.4; O2SAT 96
--- NOTE | 2022-07-04 11:17 | P.OP_ITS ---
Operative Note Operative Note Date of Service: 07/04/22 Narrative: PreOperative Diagnosis: left renal stones Post Operative Diagnosis: 1. Left renal stones 2. Left proximal ureteric stone Procedure: - cystoscopy, left retrograde - left dilatation of ureteric orifice under fluoroscopy - left ureteroscopy, laser lithotripsy left proximal ureteric stone and multiple renal stones (x2), stone basketing - left stent placement Surgeon: Dr Oscar Muñoz Anesthesia: General Indications for procedure: progressive left flank discomfort with intermittent pain. Imaging showed 3 x 6-9 mm stones on ultrasound. Recommend intervention with ureteroscopy due to multiple stone locations Procedure: After informed consent was verified patient was brought to the operating placed in supine position. Anesthesia was administered per protocol. Patient was placed in modified dorsal lithotomy position and prepped and draped in a sterile fashion. Safety pause time-out and side of surgery confirmed. Antibiotics confirmed. 22 Romanian cystoscope was inserted per urethra. Bladder was normal in its entirety. Both ureteric orifices were in normal position. The Left ureteric orifice was cannulated and a retrograde examination was performed. question of small filling defect noted at UPJ. No filling defects seen within renal pelvis.. A Sensor guidewire was placed up to the level of the renal pelvis under fluoroscopy. The rigid cystoscope was removed and the inner cannula of ureteric access sheath was used under fluoroscopy to dilate the ureteric orifice. The ureteric access sheath was placed and the inner cannula with access wire removed. The digital flexible ureteral scope was placed. The 1st stone was encountered in the UPJ proximal portion of the left ureter. Using the 272 micron holmium laser fiber the stone was broken into small pieces. We then took the 1.9 Romanian 0 tip basket and removed fragments of stone with be sent for pathology. The kidney was examined. Two further stones were found : 1 in the midpole and 1 in the lower pole.The Lower pole stone was able to be removed with the basket. It broke into 2 pieces in the renal pelvis and each piece was removed separately. The midpole stone was broken into small fragments using the holmium laser. Using the basket we were able to remove major fragments from this stone area. At the completion of the stone procedure a Sensor wire was placed back into the renal pelvis. The rigid cystoscope was backloaded over the wire and advanced into the bladder. A 6 Romanian by 28 cm double-J stent was placed into the renal pelvis and bladder under a combination of fluoroscopy and direct visualization. The bladder was emptied. The patient tolerated the procedure well and was extubated in the operating room, and transferred in stable condition to the recovery area. Pathology: Multiple fragments of renal stones Drains: drain as described above
[2022-07-04 11:18] VITALS: BP 124/82; PULSE 83; RESP 24; O2SAT 97
[2022-07-04 11:23] VITALS: BP 133/84; PULSE 83; RESP 20; O2SAT 97
[2022-07-04 11:28] VITALS: BP 128/87; PULSE 84; RESP 20; O2SAT 93
[2022-07-04 11:43] VITALS: BP 131/85; PULSE 80; RESP 20; O2SAT 93
[2022-07-04] MEDS: Phenazopyridine HCL 100 MG TABLET PO (11:47)
[2022-07-04] MEDS: Acetaminophen 325 MG TABLET 650 MG PO (11:47)
[2022-07-04] MEDS: oxyCODONE HCl Immed Release 5 MG TABLET PO (11:48)
[2022-07-06 17:04] LABS: Stone Source LEFT RENAL STONE
== END 2022-07-04 13:17 | disposition home or self-care (01) ==
PROVIDERS: PCP Internal Medicine; Visit Provider Urology
PROC: (CPT 52356; principal; 2022-07-04 09:40)
DX: N20.0 Calculus of kidney (principal); N20.1 Calculus of ureter; Z87.442 Personal history of urinary calculi; I10 Essential (primary) hypertension; E78.00 Pure hypercholesterolemia, unspecified; G47.33 Obstructive sleep apnea (adult) (pediatric); E11.9 Type 2 diabetes mellitus without complications; Z79.84 Long term (current) use of oral hypoglycemic drugs; Z99.89 Dependence on other enabling machines and devices; Z79.899 Other long term (current) drug therapy
CPT/HCPCS: 52356; 52352; 82365; 82947; 88300; C1758; C1769; C2617; J1956; J2250; J2405; J3010

== ENCOUNTER 2022-07-19 15:46 | Outpatient (REF) | payer OTHER, SELFPAY ==
--- NOTE | ~2022-07-19 | XR_ITS ---
EXAMINATION: XR ABDOMEN KUB CLINICAL INDICATION: Urinary tract calculi COMPARISON: Renal ultrasound 06/08/2022, CT abdomen 08/13/2021 TECHNIQUE: AP x4 views of the abdomen. FINDINGS: There is a 6 mm calculus overlying lower pole left kidney. There are no other visible urinary tract calculi. Some incidental phleboliths are again seen overlying the left and right pelvis. The bowel gas is unremarkable. XR/XR KUB IMPRESSION: 6 mm calculus overlying lower pole left kidney.
== END 2022-07-19 15:47 | disposition home or self-care (01) ==
LOC: HO.XRAY 15:46
PROVIDERS: PCP Internal Medicine; Visit Provider Urology
DX: N20.0 Calculus of kidney (principal)
CPT/HCPCS: 74018

== ENCOUNTER 2022-07-28 14:45 | Day surgery (SDC) | payer OTHER, SELFPAY ==
[2022-07-28] VITALS (7 sets, daily range): BP systolic 122–141; BP diastolic 81–94; PULSE 72–87; RESP 14–18; TEMP 36.7–36.9; O2SAT 93–98; BMI 34.9
--- NOTE | ~2022-07-28 | FL_ITS ---
EXAMINATION: XR FLUOROSCOPY WITH IMAGES CLINICAL INFORMATION: Left ureteral stone. COMPARISON: KUB 07/19/2022 TECHNIQUE: Fluoroscopy Supervised By: Dr. Toni Moore.. Fluoroscopy Time: 22.3 seconds. Cumulative Dose: 11.60 mGy. Images: 3. FINDINGS: 3 digital images obtained in OR reveal contrast opacifying left kidney pelvis and proximal ureter. No filling defects seen. The subsequent images reveals catheter tip within left kidney pelvis. No soft tissue abnormality seen. FL/FL guidance in OR IMPRESSION: Fluoroscopy was provided to referring physician for left retrograde pyelogram and ureteral stent placement.
--- NOTE | 2022-07-28 16:06 | P.CONAN_ITS ---
HPI - Anesthesia Eval Consult details Narrative: 56 M for cystoscopy and ureteroscopy [facility] Active Problems Active Problems: All Active Problems (Updated 06/29/22 @ 15:16 by Ryann Claudio RN) Diabetes (Acute) Kidney stone (Acute) Past Medical History Medical History Diabetes H/O nephrolithotomy with removal of calculi High cholesterol HTN (hypertension) Kidney stone MACARIO on CPAP Slow to wake up after anesthesia Family History Family history of problems with anesthesia: No Surgical History Surgical History H/O shoulder surgery History of ankle surgery Hx of colonoscopy Hx of cystoscopy History of Problems with Anesthesia: No Social History Social History Are you a primary complex care nurse practitioner to a significant other at home: No Do you presently have visiting nurse or other home services: No Patient Tobacco Use Status: Never used Tobacco Second Hand Smoke Exposure: No Advance Directives: Yes Advance Directives Information Provided: Yes Advance Directives on File: No Meds Allergies Allergy/AdvReac Type Severity Reaction Status Date / Time No Known Allergies Allergy Verified 06/29/22 15:14 [No Known Allergies*] Active Medications: Current Medications Lactated Ringer's (Lr) 1,000 mls @ 50 mls/hr IVCONT .Q20H SAMIA Ondansetron HCl (Ondansetron Hcl 4 Mg/2 Ml Vial) 4 mg IVPUSH PREOP ONE Stop: 07/28/22 16:06 Home Medications Medication Instructions Recorded Confirmed Last Taken Type allopurinol 100 mg tablet 100 mg PO DAILY 09/02/21 06/29/22 Unknown History fluoxetine 40 mg capsule 40 mg PO DAILY 09/02/21 06/29/22 Unknown History lisinopril 10 mg tablet 10 mg PO DAILY 09/02/21 06/29/22 Unknown History simvastatin 40 mg tablet 40 mg PO DAILY 09/02/21 06/29/22 Unknown History triamcinolone acetonide 0.1 % 1 appl topical BID-TID 09/02/21 Unknown History topical cream dulaglutide 3 mg/0.5 mL mg subcut 06/20/22 Unknown History subcutaneous pen injector (Trulicity) Exam Exam Date and Time: July 28, 2022 1606 Airway Mallampati Class: II TM Dist: >3cm Neck ROM: Full Loose/Missing/Broken Teeth: Yes Assessment and Plan Assessment Anesthesia Assessment: Anesthesia Plan Discussed and Chart Reviewed Final Anesthetic Review Family History of Problems with Anesthesia: No History of Problems with Anesthesia: No NPO: Yes ASA Class: III Final Preanesthetic Review: No Changes in Pt Med Stat, Meds/Allgs Chart Reviewed, Consent Obtained/Reviewed and Anes Risks/Benef Reviewed Patient Risk: Intermediate Procedure Risk: Low Anesthetic Plan Anesthetic Plan: GA Disposition: Standard PACU
[2022-07-28] MEDS: Lactated Ringers 1,000 ML 50 ML IVCONT ×2 (16:15→16:51)
[2022-07-28 16:19] LABS: Glucose, Whole Blood 105 mg/dL (60-115)
--- NOTE | 2022-07-28 16:56 | MHC.SHP ---
Pre-Procedural Eval Section A Date of Service: 07/28/22 The patient is an INPATIENT: No Changes since office visit: No Cold of Flu in the past 2 weeks, No New Medical Problems, No Changes in Medication and No Patient answered all questions The History & Physical has been completed within 30 days and I have reviewed it.: Yes Section B Chief Complaint: Calculus of kidney Details of Present Illness: Ureteroscopy approximately 4 weeks ago. Has residual fragment on left side on ultrasound. Would like to undergo repeat ureteroscopy to reach stone free state Relevant Family History (Specify if Yes): No Relevant Social History: None Present Medications: see Short Stay Collaborative assessment Medical History: No relevant PMH History of Previous Operations: Relevant previous surgery/procedure and date(s) Allergies: Allergies Allergy/AdvReac Type Severity Reaction Status Date / Time No Known Allergies Allergy Verified 06/29/22 15:14 [No Known Allergies*] Review of Systems Sugical H&P ROS: Negative: Constitution, Cardiovascular, Respiratory, Neurological, Psychiatric, Hem-Onc, Allergic/Immunologic, Gastrointestinal, Genitourinary, Musculoskeletal, Integumentary, Endocrine and Eyes/Ears/Nose/Throat Exam Surgical H&P Exam: Normal: HEENT, Normal: Heart, Normal: Lungs, Normal: Extremities, Normal: Abdomen, Normal: Skin and Normal: Neurological Plan Diagnosis/Plan: Unchanged ( cystoscopy, left retrograde, left ureteroscopy with laser lithotripsy and stent placement) I have reviewed the history and physical and performed a pertinent physical examination on my patient. No changes have occurred unless specified. Time Spent With Patient Time: Total time managing care of this patient today ____ minutes.
[2022-07-28] MEDS: levoFLOXacin 500 MG TABLET PO (17:02)
[2022-07-28] MEDS: Acetaminophen 325 MG TABLET 650 MG PO (18:07)
[2022-07-28] MEDS: Phenazopyridine HCL 100 MG TABLET PO (18:07)
--- NOTE | 2022-08-05 14:38 | P.OP_ITS ---
Operative Note Operative Note Date of Service: 07/28/22 Narrative: PreOperative Diagnosis: Persistent left flank pain with imaging of stone in kidney Post Operative Diagnosis: Submucosal kidney stones with small kidney stone fragment left side Procedure: - cystoscopy, left retrograde - left dilatation of ureteric orifice under fluoroscopy - left ureteroscopy, laser lithotripsy Surgeon: Dr Oscar Muñoz Anesthesia: General Indications for procedure: Persistent left small fragment with discomfort on left side. Rodríguez requesting repeat ureteroscopy to ensure kidney stones fully resolved. Procedure: After informed consent was verified patient was brought to the operating placed in supine position. Anesthesia was administered per protocol. Patient was placed in modified dorsal lithotomy position and prepped and draped in a sterile fashion. Safety pause time-out and side of surgery confirmed. Antibiotics con firmed. 22 Italian cystoscope was inserted per urethra. Bladder was normal in its entirety. Both ureteric orifices were in normal position. The left ureteric orifice was cannulated and a retrograde examination was performed. No filling defects seen within left ureter. No filling defects seen within left kidney. A Sensor guidewire was placed up to the level of the renal pelvis under fluo roscopy. The rigid cystoscope was removed and the inner cannula of ureteric access sheath was used under fluoroscopy to dilate the ureteric orifice. The ureteric access sheath was placed and the inner cannula with access wire removed. The digital flexible ureteral scope was placed. Small stone fragment was seen. This was broken with laser to dust. Submucosal stones were seen throughout calices. Using the holmium laser these well each broken releasing small stone fragments. 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 Decision was made not to leave a stent as this is not been well tolerated by patient previously. The bladder was emptied. The patient tolerated the procedure well and was extubated in the operating room, and transferred in stable condition to the [facility] Pathology: None Drains: None
== END 2022-07-28 19:14 | disposition home or self-care (01) ==
PROVIDERS: PCP Internal Medicine; Visit Provider Urology
PROC: (CPT 52353; principal; 2022-07-28 16:30)
DX: N20.0 Calculus of kidney (principal); Z87.442 Personal history of urinary calculi; I10 Essential (primary) hypertension; E78.00 Pure hypercholesterolemia, unspecified; E11.9 Type 2 diabetes mellitus without complications; G47.33 Obstructive sleep apnea (adult) (pediatric); Z99.89 Dependence on other enabling machines and devices; Z79.85 Long-term (current) use of injectable non-insulin antidiabetic drugs; Z79.899 Other long term (current) drug therapy
CPT/HCPCS: 52353; 82947; C1758; C1769; C1894; J2405; J3010; Q9967

== ENCOUNTER → 2022-08-05 09:54 | Outpatient (BNVA) | payer OTHER, SELFPAY | PROVIDERS: PCP Internal Medicine; Visit Provider Urology | DX: Z13.89 Encounter for screening for other disorder (principal) ==

== ENCOUNTER 2022-12-05 08:23 | Outpatient (REF) | payer OTHER, SELFPAY ==
--- NOTE | ~2022-12-05 | US_ITS ---
EXAMINATION: US RETROPERITONEAL LIMITED (RENAL ONLY) CLINICAL INFORMATION: Calculus of kidney. COMPARISON: X-ray abdomen KUB 07/19/2022. Renal ultrasound 06/08/2022 and 11/03/2021. CT abdomen and pelvis 08/13/2021. TECHNIQUE: Real-time imaging of the kidneys. FINDINGS: RIGHT KIDNEY: 13.1 x 7.3 x 7.2 cm (SAG x AP x TRV). The kidney is normal in size, contour, and echogenicity. Renal cortical thickness is normal. No calculi or focal parenchymal lesions. No hydronephrosis. LEFT KIDNEY: 13.8 x 6.7 x 6.5 cm (SAG x AP x TRV). The kidney is normal in size, contour, and echogenicity. Renal cortical thickness is normal. No calculi or focal parenchymal lesions. No hydronephrosis. US/US renal BI IMPRESSION: Normal renal ultrasound. Left renal stone no longer seen.
== END 2022-12-05 08:24 | disposition home or self-care (01) ==
LOC: HO.HMGCX 08:23
PROVIDERS: PCP Internal Medicine; Visit Provider Urology
DX: N20.0 Calculus of kidney (principal)
CPT/HCPCS: 76775

== ENCOUNTER → 2023-01-04 11:19 | Outpatient (BNVA) | payer OTHER, SELFPAY | PROVIDERS: PCP Internal Medicine; Visit Provider Urology ==

== ENCOUNTER 2023-07-06 15:28 | Outpatient (REF) | payer OTHER, SELFPAY ==
--- NOTE | ~2023-07-06 | US_ITS ---
EXAMINATION: US RETROPERITONEAL LIMITED (RENAL ONLY) CLINICAL INFORMATION: Calculus of kidney. COMPARISON: Renal ultrasound 12/05/2022 TECHNIQUE: Real-time imaging of the kidneys. FINDINGS: RIGHT KIDNEY: 13.0 x 6.1 x 6.6 cm (SAG x AP x TRV). The kidney is normal in size, contour, and echogenicity. Renal cortical thickness is normal. No calculi or focal parenchymal lesions. No hydronephrosis. LEFT KIDNEY: 13.1 x 5.9 x 6.0 cm (SAG x AP x TRV). The kidney is normal in size, contour, and echogenicity. Renal cortical thickness is normal. No calculi or focal parenchymal lesions. No hydronephrosis. US/US renal BI IMPRESSION: Unremarkable renal ultrasound. No hydronephrosis or nephrolithiasis.
== END 2023-07-06 15:29 | disposition home or self-care (01) ==
LOC: HO.HMGCX 15:28
PROVIDERS: PCP Internal Medicine; Visit Provider Urology
DX: N20.0 Calculus of kidney (principal)
CPT/HCPCS: 76775

== ENCOUNTER 2023-07-18 09:28 | Outpatient (AMB) | payer OTHER, SELFPAY ==
--- NOTE | 2023-07-18 09:28 | A.OFFVIS_ITS ---
Intake Intake Visit Reasons: 6m/US(set) Intake Note: Patient is Present for Telephone Follow Up Ultrasound Urology Med: Potassium, Tamsulosin Antibiotic Allergy: None Blood Thinner: None Allergies No Known Allergies [No Known Allergies*] Allergy (Verified 07/18/23 09:29) Medication List - Last Reconciled 07/18/23 by Oscar Muñoz MD dulaglutide (Trulicity) mg subcut flash glucose sensor (FreeStyle Jolene 2 Sensor kit) As directed fluoxetine 40 mg PO DAILY lisinopril 10 mg PO DAILY phenazopyridine (Pyridium) 100 mg PO TID PRN 4 days potassium citrate ER 20 mEq (2 x 10 mEq (1,080 mg)) PO BID 90 days simvastatin 40 mg PO DAILY tamsulosin 0.4 mg PO BEDTIME 14 days triamcinolone acetonide 0.1% 1 appl topical BID-TID HPI HPI Comments History of Present Illness Details Rodríguez is a very pleasant male. He is a patient of Dr Moody. They are seen in the office today for the following urologic conditions. - nephrolithiasis in setting of diabetes Telemedicine Evaluation 15 min Consultation [employer] Rakesh Video Discussed imaging findings Resolution of stones Continue citrate to 10meq Prior ureteroscopy - submucosal calcifications found throug hout the left kidney Stressed need to perform hyper filtration goal of 2.5 L urine production per day Potassium citrate 20 mEq p.o. b.i.d. for stone protection Nephrolithiasis/Urolithiasis: In setting of diabetes ? They are here for?further evaluation of urethrolitiasis ? Urolithiasis was diagnosed?many years has passed occasional stones ? The patient previously had kidney stones whose composition w?calcium oxalate - monohydrate 2003 ?05/2016 , calcium oxalate - monohydrate - 08/21 CALCIUM OXALATE MONOHYDRATE 80% ? Laboratory investigations include?Base line serum evaluation, 07/15 Normocalcemia (9.0), Normal PTH, Hyperuricemia.? 24 Hour urine evaluation?07/15 , Low Urine volume < 2.0 liters, High Sodium (> 100mEq), High oxalate > 30mg, Low urine pH < 5.5, High uric acid - 06/21 low volume, high sodium, high oxalate, low pH, high uric acid. Volume 1.4 L - 12/20 borderline volume, high oxalate ? Prior treatment(s) include?ureteroscopy 1986 ?, ureteroscopy, right 07/15 - 08/21 Left USR - 06/21 Left USR - 07/21 left USR - submucosal calcifications ? Prior imaging includes?a renal ultrasound, showing radiodense stone(s), on the left 2-3mm.? - 06/21 renal ultrasound left multiple 8 mm stones - 12/20 renal ultrasound evidence of stones - 07/22 renal US no stones ? Current therapeutic plan will be? - optimize medical therapy with potassium citrate 10 mEq p.o. b.i.d. - discussed hyper filtration with target urine volume 2.5 L - 6 month follow-up ultrasound [facility] Medical History MACARIO on CPAP Slow to wake up after anesthesia H/O nephrolithotomy with removal of calculi High cholesterol HTN (hypertension) Diabetes Kidney stone Surgical History Hx of colonoscopy History of ankle surgery Hx of cystoscopy H/O shoulder surgery Social History Are you a primary hospice care transitions coordinator to a significant other at home: No Do you presently have visiting nurse or other home services: No Patient Tobacco Use Status: Never used Tobacco Second Hand Smoke Exposure: No Review of Systems Const All systems reviewed & are unremarkable except as noted in HPI and below Reports no additional complaints Resp Reports no additional complaints GI Reports no additional complaints Reports as per HPI Musc Reports no additional complaints Physical Exam Telemedicine evaluation Appropriate responses Regular breathing rate and rhythm HEENT Head: Yes normal to inspection Ears: hearing grossly normal bilaterally Eyes General: appearance normal, both eyes and all related structures Neck Neck: Yes normal visual inspection Chest Chest palpation & inspection: normal inspection of the chest Resp Effort & Inspection: normal respiratory effort and able to speak in complete sentences Assessment & Plan Assessment & Plan (1) Kidney stone: Comment: Calcium oxalate monohydrate Code(s): N20.0 - Calculus of kidney Plan Twelve month follow-up renal US Orders: Orders US renal BI 364 Days N20.0 - Calculus of kidney Medications: Changed From potassium citrate ER 10 mEq PO BID 90 days 180 tabs 3RF N20.0 - Calculus of kidney To potassium citrate ER 20 mEq (2 x 10 mEq (1,080 mg)) PO BID 90 days 360 tabs 3RF N20.0 - Calculus of kidney Refilled potassium citrate ER 10 mEq PO BID 90 days 180 tabs 3RF N20.0 - Calculus of kidney Patient Instructions: Imaging studies, laboratory and physical exam results were discussed and reviewed in detail. No major barriers to patient understanding were identified. An opportunity to ask questions regarding the treatment plan was provided. All questions were answered. The patient expressed understanding and agreement with the above treatment plan. The patient is aware they should contact our office by phone for worsening of their current condition or the appearance of new urologic symptoms. Compliance is encouraged with any medications and followup testing that is ordered. It is a privilege to participate in the urologic care of your patient. If you h ave any questions or concerns regarding treatment for the above conditions, or other urologic issues, please do not hesitate to contact me. The office telephone contact is [phone]. This note is constructed using voice recognition software. While every effort has been made to ensure accuracy shaker operator errors may have been included. Yours sincerely, Dr Oscar Muñoz MD, [facility] - Urology Providers of Expert, Compassionate Care for the Genitourinary System Telehealth Telehealth Location of provider rendering services: practice address Location of patient: address on file Patient Identification confirmed using: Name, : Yes Telehealth method: video Patient verbally consented to treatment: Yes Patient verbally consented to billing insurance company: Yes Patient informed of any privacy concerns related to visit: Yes Coding Level of Care Code Tele Est Pt Level 3 (58495) Diagnoses Kidney stone N20.0
== END 2023-07-18 10:00 | disposition home or self-care (01) ==
LOC: HO.HUSH 09:28
PROVIDERS: PCP Internal Medicine; Visit Provider Urology
DX: N20.0 Calculus of kidney (principal)
CPT/HCPCS: 99213

== ENCOUNTER → 2023-07-18 09:28 | Outpatient (BNVA) | payer OTHER, SELFPAY | PROVIDERS: PCP Internal Medicine; Visit Provider Urology ==

== ENCOUNTER 2024-01-24 10:25 | Outpatient (REF) | payer OTHER, SELFPAY ==
--- NOTE | ~2024-01-24 | US_ITS ---
EXAMINATION: US RETROPERITONEAL LIMITED (RENAL ONLY) CLINICAL INFORMATION: Calculus of kidney. COMPARISON: Ultrasound renal 07/06/2023 and 12/05/2022. X-ray KUB 07/19/2022 and 08/08/2016. CT abdomen and pelvis 08/13/2021. TECHNIQUE: Real-time imaging of the kidneys. FINDINGS: RIGHT KIDNEY: 13.0 x 6.4 x 5.8 cm (SAG x AP x TRV). The kidney is normal in size, contour, and echogenicity. Renal cortical thickness is normal. No calculi or focal parenchymal lesions. No hydronephrosis. LEFT KIDNEY: 13.1 x 5.4 x 4.7 cm (SAG x AP x TRV). The kidney is normal in size, contour, and echogenicity. Renal cortical thickness is normal. No renal calculi or hydronephrosis. 1.5 x 0.8 x 1.4 cm simple parapelvic cyst in the mid kidney is seen, no imaging follow-up recommended. US/US renal BI IMPRESSION: No renal calculi. No hydronephrosis..
== END 2024-01-24 10:26 | disposition home or self-care (01) ==
LOC: HO.HMGCX 10:25
PROVIDERS: PCP Internal Medicine; Visit Provider Urology
DX: N20.0 Calculus of kidney (principal)
CPT/HCPCS: 76775

== ENCOUNTER 2024-07-08 11:31 | Outpatient (REF) | payer OTHER, SELFPAY | END 2024-07-08 11:32 | disposition home or self-care (01) | LOC: HO.HMGCX 11:31 | PROVIDERS: PCP Internal Medicine; Visit Provider Urology | DX: N20.0 Calculus of kidney (principal) | CPT/HCPCS: 76775 ==

== ENCOUNTER 2024-07-18 10:28 | Outpatient (AMB) | payer OTHER, SELFPAY ==
--- NOTE | 2024-07-18 10:28 | A.OFFVIS_ITS ---
Intake Visit Reasons: 1y/US(set) Intake Note: Patient is Present for Telephone 1Y Follow Up Ultrasound Urology Med: Potassium Antibiotic Allergy: None Blood Thinner: None Director Digital Required: No Allergies No Known Allergies [No Known Allergies*] Allergy (Verified 07/18/24 10:29) HPI Comments Details: Rodríguez is a very pleasant male. He is a patient of Dr Moody. They ar e seen in the office today for the following urologic conditions. - nephrolithiasis in setting of diabetes Telemedicine Evaluation 15 min Consultation [employer] Video Discussed imaging findings Resolution of stones Continue citrate 10meq Add lemon to water Prior ureteroscopy - submucosal calcifications found throughout the left kidney Stressed need to perform hyper filtration goal of 2.5 L urine production per day Potassium citrate 20 mEq p.o. b.i.d. for stone protection Nephrolithiasis/Urolithiasis: In setting of diabetes ? They are here for?further evaluation of urethrolitiasis ? Urolithiasis was diagnosed?many years has passed occasional stones ? The patient previously had kidney stones whose composition w?calcium oxalate - monohydrate 2003 ?05/2016 , calcium oxalate - monohydrate - 08/21 CALCIUM OXALATE MONOHYDRATE 80% ? Laboratory investigations include?Base line serum evaluation, 07/15 Normocalcemia (9.0), Normal PTH, Hyperuricemia.? 24 Hour urine evaluation?07/15 , Low Urine volume < 2.0 liters, High Sodium (> 100mEq), High oxalate > 30mg, Low urine pH < 5.5, High uric acid - 06/21 low volume, high sodium, high oxalate, low pH, high uric acid. Volume 1.4 L - 12/20 borderline volume, high oxalate ? Prior treatment(s) include?ureteroscopy 1986 ?, ureteroscopy, right 07/15 - 08/21 Left USR - 06/21 Left USR - 07/21 left USR - submucosal calcifications ? Prior imaging includes?a renal ultrasound, showing radiodense stone(s), on the left 2-3mm.? - 06/21 renal ultrasound left multiple 8 mm stones - 12/20 renal ultrasound evidence of stones - 07/22 renal US no stones - 07/23 renal ultrasound over the stones ? Current therapeutic plan will be? - optimize medical therapy with potassium citrate 10 mEq p.o. b.i.d. - discussed hyper filtration with target urine volume 2.5 L - 6 month follow-up ultrasound PFSH Medical History MACARIO on CPAP Slow to wake up after anesthesia H/O nephrolithotomy with removal of calculi High cholesterol HTN (hypertension) Diabetes Kidney stone Surgical History Hx of colonoscopy History of ankle surgery Hx of cystoscopy H/O shoulder surgery Social History Are you a primary respiratory care faculty to a significant other at home: No Do you presently have visiting nurse or other home services: No Patient Tobacco Use Status: Never used Tobacco Second Hand Smoke Exposure: No Review of Systems Const All systems reviewed & are unremarkable except as noted in HPI and below Reports no additional complaints Resp Reports no additional complaints GI Reports no additional complaints Reports as per HPI Musc Reports no additional complaints Physical Exam Telemedicine evaluation Appropriate responses Regular breathing rate and rhythm HEENT Head: Yes normal to inspection Ears: hearing grossly normal bilaterally Eyes General: appearance normal, both eyes and all related structures Neck Neck: Yes normal visual inspection Chest Chest palpation & inspection: normal inspection of the chest Resp Effort & Inspection: normal respiratory effort and able to speak in complete sentences Telehealth Telehealth Telehealth Platform: [employer] Location of provider rendering services: practice address Location of patient: address on file Patient Identification confirmed using: Name, : Yes Telehealth method: video Patient verbally consented to treatment: Yes Patient verbally consented to billing insurance company: Yes Patient informed of any privacy concerns related to visit: Yes Minutes spent on Phone/Video with Pt.: 15 Assessment & Plan Assessment & Plan (1) Kidney stone: Comment: Calcium oxalate monohydrate Code(s): N20.0 - Calculus of kidney Category: Medical Plan 12m f/u imaging Medications: Refilled potassium citrate ER 20 mEq (2 x 10 mEq (1,080 mg)) PO BID 90 days 360 tabs 3RF N20.0 - Calculus of kidney Patient Instructions: Imaging studies, laboratory and physical exam results were discussed and reviewed in detail. No major barriers to patient understanding were identified. An opportunity to ask questions regarding the treatment plan was provided. All questions were answered. The patient expressed understanding and agreement with the above treatment plan. The patient is aware they should contact our office by phone for worsening of their current condition or the appearance of new urologic symptoms. Compliance is encouraged with any medications and followup testing that is ordered. It is a privilege to participate in the urologic care of your patient. If you have any questions or concerns regarding treatment for the above conditions, or other urologic issues, please do not hesitate to contact me. The office telephone contact is [phone]. This note is constructed using voice recognition software. While every effort has been made to ensure accuracy cotton weigher operator errors may have been included. Yours sincerely, Dr Oscar Muñoz MD, [facility] - Urology Providers of Expert, Compassionate Care for the Genitourinary System Coding Level of Care Code Tele Est Pt Level 4 (15555) Diagnoses Kidney stone N20.0
== END 2024-07-18 15:14 | disposition home or self-care (01) ==
LOC: HO.HUSH 10:28
PROVIDERS: PCP Internal Medicine; Visit Provider Urology
DX: N20.0 Calculus of kidney (principal)
CPT/HCPCS: 99214